=== PATIENT | male | born 1995 ===

== ENCOUNTER 2021-10-30 16:50 | Emergency (ER) | payer BC, OTHER | END 2021-10-30 19:45 | disposition home or self-care (01) | LOC: JD.ED 16:50 | DX: S92.321A Displaced fracture of second metatarsal bone, right foot, initial encounter for closed fracture (principal); S92.331A Displaced fracture of third metatarsal bone, right foot, initial encounter for closed fracture; S92.341A Displaced fracture of fourth metatarsal bone, right foot, initial encounter for closed fracture; Z72.0 Tobacco use; W00.0XXA Fall on same level due to ice and snow, initial encounter | CPT/HCPCS: 73630-26-RT; 73630-RT; 99283 ==